=== PATIENT | male | born 1965 | race African-American/Black ===

== ENCOUNTER 2018-11-23 18:09 | Emergency (ER) | payer OTHER, SELFPAY ==
[2018-11-23 18:11] VITALS: BP 178/109; PULSE 93; RESP 14; TEMP 36.8; O2SAT 96; BMI 37.5
--- NOTE | 2018-11-23 19:13 | ED_ITS ---
HPI - Back Pain/Injury <GRISELDA Sandoval - Last Filed: 11/23/18 21:52> General Chief Complaint: Back Pain/Injury Stated Complaint: BOTH SIDE BACK PAIN TINGLING OF LEGS Time Seen by Provider: 11/23/18 18:20 Source: patient Mode of arrival: ambulatory Limitations: no limitations History of Present Illness HPI Narrative: 53-year-old male here for complaint to bilateral upper lumbar paraspinal discomfort earlier today. He states that as the day progressed his muscles got more sore and more tight. 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 He denies any trauma to the lower back area. He reports that his back got very tight this afternoon and painful were was difficult for him to take deep breaths. He denies any loss of bladder or bowel control. He is ambulatory in the emergency room today. He reports that the pain radiates down into his right thigh area. He was seen for similar symptoms over week ago and was diagnosed with abdominal wall strain and was prescribed a muscle relaxer. MD Complaint: back pain Related Data Previous Rx's Medication Instructions Recorded prednisone 40 mg PO DAILY #8 tab 11/23/18 Review of Systems <GRISELDA Sandoval - Last Filed: 11/23/18 21:52> Constitutional Denies chills, Denies fever(s), Denies lethargy and Denies weakness Eyes Denies change in vision, Denies eye discharge, Denies irritation and Denies loss of vision ENT Ears, Nose, Mouth, and Throat: Denies change in voice, Denies neck pain and Denies sore throat Cardiovascular Denies dyspnea and Denies dyspnea on exertion Respiratory Denies cough, Denies dyspnea, Denies dyspnea on exertion and Denies wheezing Gastrointestinal Gastrointestinal: Denies abdominal pain, Denies change in bowel habits, Denies diarrhea, Denies nausea and Denies vomiting Musculoskeletal Denies neck pain Comments: Back pain and muscle spasm radiating into right thigh Integumentary/Breasts Denies pruritus, Denies erythema, Denies rash and Denies wounds Neurologic Denies confusion, Denies loss of vision and Denies weakness Psychiatric Denies anxiety, Denies confusion, Denies depression, Denies homicidal ideation and Denies suicidal ideation Allergic/Immunologic Denies wheezing PFSH <GRISELDA Sandoval - Last Filed: 11/23/18 21:52> Social History Smoking Status: Unknown if ever smoked Social History Smoking Status: Unknown if ever smoked Exam <GRISELDA Sandoval - Last Filed: 11/23/18 21:52> Initial Vital Signs Initial Vital Signs: Vital Signs Temperature 98.3 F 11/23/18 18:11 Pulse Rate 93 H 11/23/18 18:11 Respiratory Rate 14 11/23/18 18:11 Blood Pressure 178/109 H 11/23/18 18:11 Pulse Oximetry 96 11/23/18 18:11 Const General: cooperative and well developed Nutritional Appearance: well nourished Orientation: alert, awake, oriented x3 and not confused HENMT Mouth: oral mucosae normal and moist mucous membranes Eyes General: appearance normal, both eyes and all related structures Conjunctivae: conjunctivae normal Sclera: sclerae normal Pupils: PERRL EOM: EOM intact bilaterally Resp Effort & Inspection: normal respiratory effort, able to speak in complete sentences, no respiratory distress and no use of accessory muscles Auscultation: clear to auscultation bilaterally, no rales, no rhonchi and no wheezes Cardio Rate: regular rate Rhythm: regular rhythm Heart Sounds: no click, no gallops, no murmurs and no rubs Pulses: normal peripheral pulses Back/Spine/Pelvis Other: Lumbar spine with no signs of trauma. No tenderness on palpation distal sensation is intact. Distal pulses are intact. Distal range of motion is intact. Skin General: no rashes or lesions noted, No jaundice and No petechiae Neuro General: alert, oriented x3, gait normal and no focal motor deficits Speech: speech normal <Sivakumar Aragon DO - Last Filed: 11/24/18 05:00> Initial Vital Signs Initial Vital Signs: Vital Signs Temperature 98.3 F 11/23/18 18:11 Pulse Rate 93 H 11/23/18 18:11 Respiratory Rate 14 11/23/18 18:11 Blood Pressure 178/109 H 11/23/18 18:11 Pulse Oximetry 96 11/23/18 18:11 Course <GRISELDA Sandoval - Last Filed: 11/23/18 21:52> Vital Signs - 8 hr 11/23/18 18:11 11/23/18 19:19 Temperature 98.3 F Pulse Rate 93 H 97 H Respiratory Rate 14 18 Blood Pressure 178/109 H Blood Pressure [Left Arm] 148/94 H Pulse Oximetry 96 95 <Sivakumar Aragon DO - Last Filed: 11/24/18 05:00> Vital Signs - 8 hr 11/23/18 18:11 11/23/18 19:19 Temperature 98.3 F Pulse Rate 93 H 97 H Respiratory Rate 14 18 Blood Pressure 178/109 H Blood Pressure [Left Arm] 148/94 H Pulse Oximetry 96 95 MDM - Back Pain/Injury <GRISELDA Sandoval - Last Filed: 11/23/18 21:52> MDM Narrative Medical decision making narrative: Symptoms resolved at time of exam with exception of some mild discomfort. Signs and symptoms of from a subjective history presents as a muscle spasm secondary to muscle strain to the lumbar region along with sciatica. Will have her continue using muscle relaxer as prescribed along with [id number] ibuprofen and short course of prednisone for anti-inflammatory effects. Work note is provided for either light duty or no work for the next couple days to rest the area. Gentle range of motion painful areas. For any worsening symptoms return to the emergency room. Discharge Plan Departure Patient Disposition: Home Clinical Impression: Strain of lumbar region Qualifiers: Encounter type: initial encounter Qualified Code(s): S39.012A - Strain of muscle, fascia and tendon of lower back, initial encounter Sciatica Qualifiers: Laterality: right Qualified Code(s): M54.31 - Sciatica, right side Discharge Date/Time: 11/23/18 19:28 Interventions: ED Discharge Assessment Last Done: 11/23/18 19:27 Instructions: DI for Back Pain With Sciatica Activity Restrictions/Additional Instructions: Signs and symptoms presents as lower back muscle strain with muscle spasm causing sciatica. Continue to use muscle relaxer as prescribed. Also use [id number] ibuprofen for discomfort. Small amount of prednisone and a steroid is prescribed use as directed. Rest area. Do gentle range of motion to painful areas help keep muscles loose. Follow up with her primary care provider. If continued lower back pain may need to have MRI. Return emergency room for any worsening symptoms. Prescriptions: New prednisone 20 mg tablet 40 mg PO DAILY Qty: 8 RF: 0 Referrals: Jan Ron MD [Primary Care Provider] - Stand Alone Forms: Work Release Note <Sivakumar Aragon DO - Last Filed: 11/24/18 05:00> Cosign ED Attending Cosignature Attestation: I was immediately available in the department for consultation. Documentation has been reviewed. I agree with assessment and plan.
[2018-11-23 19:19] VITALS: BP 148/94; PULSE 97; RESP 18; O2SAT 95
== END 2018-11-23 19:28 | disposition home or self-care (01) ==
PROVIDERS: Emergency Provider Nurse Practitioner Family; PCP Internal Medicine
DX: S39.012A Strain of muscle, fascia and tendon of lower back, initial encounter (principal); M54.31 Sciatica, right side
CPT/HCPCS: 99282

== ENCOUNTER 2019-10-17 09:09 | Emergency (ER) | payer OTHER, SELFPAY ==
[2019-10-17 09:10] VITALS: BP 167/92; PULSE 89; RESP 16; TEMP 36.7; O2SAT 100; BMI 36.5
--- NOTE | 2019-10-17 09:20 | ED.BACK ---
HPI - Back Pain/Injury General Chief Complaint: Back Pain/Injury Stated Complaint: tightness in back ab and down legs lifted a dress Time Seen by Provider: 10/17/19 09:19 Source: patient, family () and old records reviewed Mode of arrival: Ambulatory Limitations: no limitations History of Present Illness HPI Narrative: This is a 54-year-old male comes emergency department with complaint of green in back pain radiating down his left leg. On he was lifting heavy desk with another co-worker when he felt a pop and had pain in his groin bilaterally. Patient then states he also developed pain down the left leg almost immediately as well as tightness in his lower back the following day. Patient states he has continued to have tightness in his back he states it's not really painful. He does have discomfort in the groin. As well as tingling and discomfort on his left leg. Patient denies any weakness, he denies any numbness. Denies any symptoms in his right leg. He denies any loss of bowel or bladder control. He states that he has been having trouble getting to the bathroom in time but knows that he needs to urinate. He states this is been a longstanding problem but is worsened by the fact that he is moving much slower than normal. Denies any fecal incontinence. Patient has had similar back and lower extremity issues in the past but not to the groin pain. Lifting, movement and particularly walking make his symptoms worse. He has been taking ibuprofen. He takes lisinopril for hypertension, he has had elbow and knee surgery. No prior back or abdominal surgeries. Denies any allergies to medications. Related Data Previous Rx's Medication Instructions Recorded cyclobenzaprine 10 mg PO TID PRN #14 tab 10/17/19 lidocaine 1 patch TOP DAILY #15 each 10/17/19 meloxicam 7.5 mg PO BID #10 tab 10/17/19 Allergies Allergy/AdvReac Type Severity Reaction Status Date / Time No Known Drug Allergies Allergy Verified 10/17/19 09:37 Review of Systems Review of Systems ROS Unobtainable: All systems reviewed & are unremarkable except as noted in HPI and below Constitutional Constitutional: Denies chills and Denies fever(s) Gastrointestinal Gastrointestinal: Denies abdominal pain, Denies change in bowel habits, Denies fecal incontinence, Denies diarrhea, Denies nausea and Denies vomiting Genitourinary Genitourinary: Denies hematuria, Denies genital pain, Denies dysuria, Denies flank pain, Denies testicular pain, Denies urinary frequency, Denies urinary hesitancy, Denies urinary incontinence and Reports urinary urgency Musculoskeletal Musculoskeletal: Reports as per HPI, Reports back pain (spasm), Reports limited range of motion, Denies muscle weakness, Denies numbness, Reports radiating pain into limb (left leg), Reports stiffness and Reports tingling Integumentary/Breasts Skin/Breast: Denies rash Neurologic Neurologic: Denies numbness and Reports tingling Patient History Medical History (Updated 10/17/19 @ 10:36 by Jackelin Lawson DO) Hypertension (Acute) Social History Smoking Status: Unknown if ever smoked Smoking Status: Unknown if ever smoked alcohol intake frequency: holidays/special occasions only Substance Use Type: does not use Exam Narrative Exam Narrative: GENERAL: Alert and oriented x three, obese, well-appearing male in mild distress. HEENT: Head normocephalic, atraumatic, EOMI, pupils reactive, face symmetric, moist mucous membranes NECK: Supple, full range of motion CARDIOVASCULAR: Regular rate and rhythm without murmurs, rubs or gallops. RESPIRATORY: Breath sounds equal bilaterally, no wheezes rales or rhonchi. ABDOMEN: Soft, nontender. Normoactive bowel sounds all 4 quadrants. No guarding or rebound, rigidity, no mass. No hernia noted, no inguinal tenderness, defect or lumps noted. : No CVA tenderness BACK: No cervical, thoracic or lumbar vertebral point tenderness. Patient has decreased range of motion. Patient has spasm and mild discomfort in the left lower back/quadratus lumborum area. Patient's gait is normal. Muscle strength is 5/5 in lower extremities, DTRs are 2/4 and lower extremities. Dorsalis pedis and tibialis pulses are 2+ and lower extremities. Sensation is intact in the lower extremities. EXTREMITIES: Normal range of motion, no clubbing or edema. Neurovascularly intact. NEUROLOGICAL: Cranial nerves II through XII grossly intact. Moving all extremities SKIN: Warm, dry, no petechiae, no rashes or lesions. Initial Vital Signs Initial Vital Signs: Vital Signs Temperature 98.0 F 10/17/19 09:10 Pulse Rate 89 10/17/19 09:10 Respiratory Rate 16 10/17/19 09:10 Blood Pressure 167/92 H 10/17/19 09:10 Pulse Oximetry 100 10/17/19 09:10 Course Orders Ordered: ED Orders 10/17/19 09:35 XR lumbar spine 2-3V Stat Discontinued Medications Cyclobenzaprine HCl (Flexeril) 10 mg PO NOW ONE Stop: 10/17/19 09:36 Last Admin: 10/17/19 09:50 Dose: 10 mg Documented by: CITLALI Ketorolac Tromethamine (Toradol) 30 mg IM NOW ONE Stop: 10/17/19 09:36 Last Admin: 10/17/19 09:50 Dose: 30 mg Documented by: CITLALI Vital Signs Vital signs: Vital Signs - 8 hr 10/17/19 09:10 10/17/19 11:00 Temperature 98.0 F Pulse Rate 89 74 Respiratory Rate 16 12 Blood Pressure 167/92 H Blood Pressure [Left Arm] 134/74 Pulse Oximetry 100 100 MDM - Back Pain/Injury Imaging Data Lumbar spine xray: Attestation: I personally reviewed and interpreted this imaging study as follows: My Impression: nap, patient has prior arthritic and chronic changes. No new changes noted. Radiologist's Impression: [place] [address] XRay Report Signed Patient: Martinez London DMR#: [id number] : 1965Acct:[id number] Age/Sex: 54 / MDate of Service: 10/17/19 Loc: ED Accession Number: [id number] Procedure: XR lumbar spine 2-3V Ordering Provider: Jackelin Lawson D.O. PROCEDURE: XR LUMBAR SPINE 2-3V INDICATIONS: low back spasm, groin pain, left leg pain TECHNIQUE: 3 views of the lumbar spine were acquired. COMPARISON: [facility], , XR LUMBAR SPINE W OBL MIN 4VW, 11/14/2015, 8:02. FINDINGS: Bones: No fracture or focal osseous destruction. Minimal anterior wedging of the T12 and L1 vertebral bodies. This appears unchanged. Multilevel degenerative endplate sclerosis and spurring. Diffuse facet arthropathy. Mild narrowing of the L4-L5 and L5-S1 disc spaces which appears unchanged. Grade 1 retrolisthesis of L1 on L2, L2 on L3 and L3 on L4, unchanged. Soft tissues: Overlying bowel gas pattern is normal. No suspicious soft tissue calcifications. IMPRESSION: Unchanged lower lumbar facet arthropathy and mild disc degeneration. Dictated by: Jonh Mcdermott M.D. on 10/17/2019 at 11:08 Approved by: Jonh Mcdermott M.D. on 10/17/2019 at 11:11 [facility] Narrative Medical decision making narrative: Discussed findings with patient, on recheck he is feeling much better. Discussed red flag symptoms, strict return precautions. 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 No flexeril while working. Also precautions to protect his back. Patient and express understanding. L&I paperwork was filled out. Discharge Plan Departure Patient Disposition: Home Clinical Impression: Strain of lumbar region Qualifiers: Encounter type: initial encounter Qualified Code(s): S39.012A - Strain of muscle, fascia and tendon of lower back, initial encounter Groin strain Qualifiers: Encounter type: initial encounter Laterality: unspecified laterality Qualified Code(s): S76.219A - Strain of adductor muscle, fascia and tendon of unspecified thigh, initial encounter Discharge Date/Time: 10/17/19 11:08 Instructions: DI for Back Pain With Sciatica Activity Restrictions/Additional Instructions: Follow up with L&I provider in the next 7-10 days if symptoms are not improving. Take medications as prescribed. Do not take ibuprofen or NSAIDs with meloxicam, you may take twice daily. You may take tylenol up to 1000mg every 8 hours as needed with this medication. Use lidocaine patch to affected area, replace every 24 hours. You may take muscle relaxant every 8 hours as needed, this medication can make you sleepy do not drive, perform hazardous activities or make any major decisions while taking. Return to the ER for fevers greater than 100.4F, rapidly worsening pain in her back, groin or lower extremity, new weakness, numbness or loss of sensation, inability to lift your foot or leg, loss of bowel or bladder control or if you do not realize you are urinating or having bowel movements, or other new or concerning symptoms. Prescriptions: New lidocaine 5 % adhesive patch,medicated 1 patch TOP DAILY Qty: 15 RF: 0 meloxicam 7.5 mg tablet 7.5 mg PO BID Qty: 10 RF: 0 cyclobenzaprine 10 mg tablet 10 mg PO TID PRN (Reason: muscle spasm) Qty: 14 RF: 0 Referrals: Jan Ron MD [Primary Care Provider] - Stand Alone Forms: Work Release Note
--- NOTE | 2019-10-17 09:35 | DI.RAD.S_ITS ---
PROCEDURE: XR LUMBAR SPINE 2-3V INDICATIONS: low back spasm, groin pain, left leg pain TECHNIQUE: 3 views of the lumbar spine were acquired. COMPARISON: [facility], [facility], XR LUMBAR SPINE W OBL MIN 4VW, 11/14/2015, 8:02. FINDINGS: Bones: No fracture or focal osseous destruction. Minimal anterior wedging of the T12 and L1 vertebral bodies. This appears unchanged. Multilevel degenerative endplate sclerosis and spurring. Diffuse facet arthropathy. Mild narrowing of the L4-L5 and L5-S1 disc spaces which appears unchanged. Grade 1 retrolisthesis of L1 on L2, L2 on L3 and L3 on L4, unchanged. Soft tissues: Overlying bowel gas pattern is normal. No suspicious soft tissue calcifications. IMPRESSION: Unchanged lower lumbar facet arthropathy and mild disc degeneration. Dictated by: Jonh Mcdermott M.D. on 10/17/2019 at 11:08 Approved by: Jonh Mcdermott M.D. on 10/17/2019 at 11:11
--- NOTE | 2019-10-17 09:38 | PC.NURSE ---
CSM fully within normal limits. No focal weakness. Ambulatory w/o difficulty.
[2019-10-17] MEDS: CYCLOBENZAPRINE 10 MG TABLET PO (09:50)
[2019-10-17] MEDS: KETOROLAC 60 MG/2 ML VIAL 30 MG IM (09:50)
[2019-10-17 11:00] VITALS: BP 134/74; PULSE 74; RESP 12; O2SAT 100
== END 2019-10-17 11:08 | disposition home or self-care (01) ==
PROVIDERS: Emergency Provider Emergency Medicine; PCP Internal Medicine
DX: S39.012A Strain of muscle, fascia and tendon of lower back, initial encounter (principal); S76.219A Strain of adductor muscle, fascia and tendon of unspecified thigh, initial encounter; X50.0XXA Overexertion from strenuous movement or load, initial encounter; Y99.0 Civilian activity done for income or pay
CPT/HCPCS: 72100; 96372; 99283; J1885

== ENCOUNTER 2019-11-17 18:45 | Emergency (ER) | payer OTHER, SELFPAY ==
[2019-11-17 19:56] VITALS: BP 161/104; PULSE 96; TEMP 37.1; O2SAT 97
--- NOTE | 2019-11-17 20:20 | ED_ITS ---
HPI - Back Pain/Injury General Chief Complaint: Back Pain/Injury Stated Complaint: back pain radiating down his left leg Time Seen by Provider: 11/17/19 19:52 Source: patient Mode of arrival: Ambulatory Limitations: no limitations History of Present Illness HPI Narrative: Patient is a 54-year-old male here for evaluation of left lower extremity pain to include left knee pain. Patient has been seen in the past for this. He was initially seen last month. This is an L and I claim. He states he has not followed up with his primary doctor since that time. He has been doing Mobic. No physical therapy. No further radiologic studies. They state that they are having problems finding a provider that will take this L&I claim in order to get referrals to see physical therapy or any MRIs. He came in today because he is not having left knee pain and that is also occasionally radiating down to his left foot. No fevers. No loss of bowel or bladder. Related Data Previous Rx's Medication Instructions Recorded cyclobenzaprine 10 mg PO TID PRN #14 tab 10/17/19 lidocaine 1 patch TOP DAILY #15 each 10/17/19 meloxicam 7.5 mg PO BID #10 tab 10/17/19 prednisone 40 mg PO DAILY 7 Days #14 tab 11/17/19 Allergies Allergy/AdvReac Type Severity Reaction Status Date / Time No Known Drug Allergies Allergy Verified 11/17/19 18:53 Review of Systems Constitutional Constitutional: Denies fever(s) Cardiovascular Cardiovascular: Denies chest pain and Denies dyspnea Respiratory Respiratory: Denies dyspnea Gastrointestinal Gastrointestinal: Denies abdominal pain, Denies nausea and Denies vomiting Genitourinary Genitourinary: Denies dysuria and Denies urinary hesitancy Musculoskeletal Musculoskeletal: Reports radiating pain into limb (Left) Comments: Left knee pain Integumentary/Breasts Skin/Breast: Denies lesions and Denies rash Neurologic Neurologic: Denies behavioral changes Psychiatric Psychiatric: Denies behavioral changes Hematologic/Lymphatic Hematologic/Lymphatic: Denies easy bleeding and Denies easy bruising Patient History Medical History Hypertension (Acute) Social History Smoking Status: Unknown if ever smoked Smoking Status: Unknown if ever smoked tobacco type: cigars alcohol intake frequency: holidays/special occasions only Substance Use Type: does not use Exam Initial Vital Signs Initial Vital Signs: Vital Signs Temperature 98.7 F 11/17/19 19:56 Pulse Rate 96 H 11/17/19 19:56 Blood Pressure 161/104 H 11/17/19 19:56 Pulse Oximetry 97 11/17/19 19:56 Const General: cooperative and comfortable Limitations: mental status not altered HENMT Head: normal to inspection and normocephalic Resp Effort & Inspection: normal respiratory effort Cardio Rate: regular rate Skin Lesions: no lesions Rashes: no rashes Neuro General: alert, awake and oriented x3 Gait: normal gait Extrem General: capillary refill normal and No edema Other: No tenderness to palpation left knee. Is able to ambulate. Course Vital Signs Vital signs: Vital Signs - 8 hr 11/17/19 19:56 Temperature 98.7 F Pulse Rate 96 H Blood Pressure [Left Arm] 161/104 H Pulse Oximetry 97 MDM - Back Pain/Injury MDM Narrative Medical decision making narrative: Inform the patient that unfortunately I cannot provide any further assistance with regard to his L and I claim. I did provide them with the phone number for a financial department here at the [facility] to see if they would be able to help the patient. I did tell him that it would not be unreasonable for him to get in to see physical therapy and potentially have an MRI however this would need to be done by either his primary provider or the L and I provider. He is on Mobic at home. We will put him on a couple days of steroids and then he will restart his Mobic at the conclusion of that. Also sent home with a very short course of some pain medication. I do not feel that this is cauda equina. I feel we can hold on any radiologic studies for now. Patient expressed understanding and agreement with plan. Discharge Plan Departure Patient Disposition: Home Clinical Impression: Sciatica Qualifiers: Laterality: left Qualified Code(s): M54.32 - Sciatica, left side Discharge Date/Time: 11/17/19 20:43 Instructions: DI for Back Pain With Sciatica Activity Restrictions/Additional Instructions: Recommend that you take the prednisone as directed after that start taking the meloxicam again as directed. Also recommend you contact the billing office at [facility] at [phone]. They may be able to help you with further questions with your L&I. Prescriptions: New prednisone 20 mg tablet 40 mg PO DAILY 7 Days Qty: 14 RF: 0 No Action lidocaine 5 % adhesive patch,medicated 1 patch TOP DAILY Qty: 15 RF: 0 meloxicam 7.5 mg tablet 7.5 mg PO BID Qty: 10 RF: 0 cyclobenzaprine 10 mg tablet 10 mg PO TID PRN (Reason: muscle spasm) Qty: 14 RF: 0 Referrals: Jan Ron MD [Primary Care Provider] -
== END 2019-11-17 20:43 | disposition home or self-care (01) ==
PROVIDERS: Emergency Provider Emergency Medicine; PCP Internal Medicine
DX: M54.32 Sciatica, left side (principal); Y99.0 Civilian activity done for income or pay
CPT/HCPCS: 99281; 99283

== ENCOUNTER → 2020-03-24 09:46 | Outpatient (CLI) | payer OTHER, SELFPAY ==
[2020-03-24 15:32] LABS: Influenza A - CEPHEID Flu A NEGATIVE (NEGATIVE); Influenza B - CEPHEID Flu B NEGATIVE (NEGATIVE)
[2020-03-25 10:31] LABS: COVID19 Sendout Not Detected (Not Detect)
== END ==
PROVIDERS: PCP Internal Medicine; Visit Provider Physician Assistant
DX: R06.02 Shortness of breath (principal); R50.9 Fever, unspecified
CPT/HCPCS: 87502; 87635

== ENCOUNTER → 2020-03-24 09:59 | Outpatient (CLI) | payer OTHER, SELFPAY ==
--- NOTE | 2020-03-24 10:02 | DI.RAD.S_ITS ---
PROCEDURE: XR CHEST 2V INDICATIONS: wheezing TECHNIQUE: 2 views of the chest were acquired. COMPARISON: None. FINDINGS: Surgical changes and devices: None. Lungs and pleura: Mild perihilar interstitial infiltrates bilaterally. No pleural effusions or pneumothorax. Mediastinum: Mediastinal contours are normal. Heart size is normal. Bones and chest wall: No suspicious bony abnormalities. Soft tissues appear unremarkable. IMPRESSION: Mild bilateral perihilar interstitial infiltrates. Differential diagnosis includes reactive airway disease versus viral pneumonitis. Dictated by: Salvador Roy M.D. on 03/24/2020 at 10:08 Approved by: Salvador Roy M.D. on 03/24/2020 at 10:09
== END ==
PROVIDERS: PCP Internal Medicine; Referring Provider Physician Assistant; Visit Provider Physician Assistant
DX: R50.9 Fever, unspecified (principal); R06.2 Wheezing; R06.02 Shortness of breath
CPT/HCPCS: 71046; 87502; 87635

== ENCOUNTER 2020-07-05 10:40 | Emergency (ER) | payer OTHER, SELFPAY ==
[2020-07-05 10:41] VITALS: BP 145/81; PULSE 79; RESP 15; TEMP 36.9; O2SAT 99; BMI 37.5
--- NOTE | 2020-07-05 11:24 | ED.LOWEXIN ---
HPI - Extremity Injury (Lower) General Chief Complaint: Extremity Injury, Lower Stated Complaint: sore knee/leg/back left side,stiffness in chest Time Seen by Provider: 07/05/20 11:02 Source: patient Mode of arrival: Ambulatory Limitations: no limitations History of Present Illness HPI Narrative: 55-year-old male who in September sustained a injury to his left knee while at work. Initially had an L&I claim. Was going to physical therapy. He states that secondary to the COVID-19 crisis he had stopped going to physical therapy. He states that his L and I claim was then closed in he returned to full duty at work. He states that his left knee/leg/back issues have never improved and actually have been worsening over the past couple days. He states he cannot go to his primary doctor because they do not deal with L and I claims. He attempted to go to walk-in clinic at [facility] and was told to come to the emergency department because they do not ?reopen ?L and I claims. He describes pain in his left knee. Especially with bending and also with movement from side to side. He has no hip pain. He states the pain in his knee is radiating up his leg into his lower back and also down. Is taking ibuprofen and also wearing a knee brace. Related Data Previous Rx's Medication Instructions Recorded cyclobenzaprine 10 mg PO TID PRN #14 tab 10/17/19 lidocaine 1 patch TOP DAILY #15 each 10/17/19 meloxicam 7.5 mg PO BID #10 tab 10/17/19 albuterol sulfate 90 mcg/actuation 1 inh INHALATION Q4-6H PRN #18 gram 03/25/20 aerosol inhaler cyclobenzaprine 10 mg PO BEDTIME PRN #10 tab 07/05/20 tramadol [Ultram] 50 mg PO Q8H PRN #10 tab 07/05/20 Allergies Allergy/AdvReac Type Severity Reaction Status Date / Time No Known Drug Allergies Allergy Verified 07/05/20 10:51 Review of Systems Constitutional Constitutional: Denies fever(s) and Denies headache(s) ENT Ears, Nose, Mouth, and Throat: Denies headache(s) Cardiovascular Cardiovascular: Denies chest pain and Denies dyspnea Respiratory Respiratory: Denies dyspnea Gastrointestinal Gastrointestinal: Denies abdominal pain Musculoskeletal Musculoskeletal: Denies numbness and Denies tingling Comments: Left knee pain/leg pain Integumentary/Breasts Skin/Breast: Denies lesions and Denies rash Neurologic Neurologic: Denies headache(s), Denies numbness and Denies tingling Psychiatric Psychiatric: Denies anxiety Hematologic/Lymphatic Hematologic/Lymphatic: Denies easy bleeding and Denies easy bruising Allergic/Immunologic Allergic/Immunologic: Denies urticaria Patient History Medical History Hypertension (Acute) Social History Smoking Status: Current some day smoker Smoking Status: Current some day smoker tobacco type: cigars alcohol intake frequency: holidays/special occasions only Substance Use Type: does not use Exam Initial Vital Signs Initial Vital Signs: Vital Signs Temperature 98.5 F 07/05/20 10:41 Pulse Rate 79 07/05/20 10:41 Respiratory Rate 15 07/05/20 10:41 Blood Pressure 145/81 H 07/05/20 10:41 Pulse Oximetry 99 07/05/20 10:41 Const General: cooperative and comfortable Limitations: mental status not altered HENMA Head: normal to inspection and normocephalic Resp Effort & Inspection: normal respiratory effort Cardio Rate: regular rate Skin Lesions: no lesions Rashes: no rashes Extrem Other: Left hip unremarkable, left ankle unremarkable, patient able to do a straight leg raise the left side. Not tender over the patella/quadriceps tendon. Did have some tenderness on the lateral aspect/posterior aspect of his left knee with flexion. His ACL MCL PCL and LCL all intact functional testing however he did have reproduction of pain with stressing of the LCL. Does report some tenderness along the ITB. Also has tenderness along the lateral hamstring. Also has tenderness along the lateral joint line. All the left leg. Course Vital Signs Vital signs: Vital Signs - 8 hr 07/05/20 10:41 Temperature 98.5 F Pulse Rate 79 Respiratory Rate 15 Blood Pressure 145/81 H Pulse Oximetry 99 MDM - Extremity Injury (Lower) MDM Narrative Medical decision making narrative: Patient has had symptoms for 9-10 months now. I do not feel that repeat x-rays are going to be beneficial. He is neurovascularly intact. I do feel that he has injured either his LCL lateral meniscus given his exam. He could also potentially have a ITB issue. Unfortunately who be unable to obtain an MRI into the emergency department. I do feel that patient needs an MRI to provided definitive diagnosis. Also feel that he has follow-up with Orthopedics and continued follow-up with physical therapy. Will send home with prescriptions for symptom treatment. He is given return precautions. He expressed understanding and agreement. Discharge Plan Departure Patient Disposition: Home Clinical Impression: Knee pain, left Qualifiers: Chronicity: chronic Qualified Code(s): M25.562 - Pain in left knee Instructions: How To Perform RICE (Rest, Ice, Compress, Elevate) Activity Restrictions/Additional Instructions: I do feel that an MRI would be beneficial to provide a definitive diagnosis of your left knee pain. Until then you can continue to wear the knee brace. Also recommend you continue with the anti-inflammatories. Also recommend physical therapy. All of this will have to be ordered by the your primary doctor or your L and I provider. A prescription for other medications for your symptoms was sent to [facility]. Prescriptions: New cyclobenzaprine 10 mg tablet 10 mg PO BEDTIME PRN (Reason: muscle spasm) Qty: 10 RF: 0 tramadol [Ultram] 50 mg tablet 50 mg PO Q8H PRN (Reason: pain) Qty: 10 RF: 0 No Action albuterol sulfate 90 mcg/actuation HFA aerosol inhaler 1 inh INHALATION Q4-6H PRN (Reason: shortness of breath) Qty: 18 RF: 0 lidocaine 5 % adhesive patch,medicated 1 patch TOP DAILY Qty: 15 RF: 0 meloxicam 7.5 mg tablet 7.5 mg PO BID Qty: 10 RF: 0 cyclobenzaprine 10 mg tablet 10 mg PO TID PRN (Reason: muscle spasm) Qty: 14 RF: 0 Referrals: Jan Ron MD [Primary Care Provider] -
--- NOTE | 2020-07-05 11:34 | PC.NURSE ---
patient states that he injured his leg at work. 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 He heard a pop. Since then he has been experiencing some instability of that leg and has re-injured it since then. He has a decreased range of motion and states the he cannot twist and turn his body because his knee is causing him pain.
[2020-07-05 11:50] VITALS: BP 147/76; PULSE 71; RESP 12; O2SAT 100
== END 2020-07-05 11:51 | disposition home or self-care (01) ==
LOC: ED 11:38
PROVIDERS: Emergency Provider Emergency Medicine; PCP Internal Medicine
DX: M25.562 Pain in left knee (principal); Y99.0 Civilian activity done for income or pay
CPT/HCPCS: 99281

== ENCOUNTER → 2020-11-14 11:11 | Outpatient (CLI) | payer OTHER, SELFPAY ==
[2020-11-14 13:27] LABS: COVID19 -Nasal RAPID Negative (Negative)
== END ==
PROVIDERS: PCP Internal Medicine; Referring Provider Physician Assistant; Visit Provider Physician Assistant
DX: Z20.822 Contact with and (suspected) exposure to COVID-19 (principal)
CPT/HCPCS: 87635

== ENCOUNTER → 2020-11-16 15:14 | Outpatient (CLI) | payer OTHER, SELFPAY ==
--- NOTE | 2020-11-16 17:08 | DI.NM.S_ITS ---
DATE OF SERVICE: 11/16/2020 PROCEDURE PERFORMED: Standard exercise treadmill study without imaging. ORDERING PROVIDER: Mery Goss PA-C. INDICATIONS: The patient is a 55-year-old male with diabetes, epigastric discomfort, and lightheadedness. FINDINGS: 1. The patient was able to exercise for 6 minutes and 19 seconds on a standard Tra protocol suggesting moderate-severely reduced exercise capacity with an ANGI of +33%, achieving 7.0 METS. 2. He demonstrated a normal heart rate and blood pressure response to exercise, achieving a maximum heart rate of 175 BPM (105% of his predicted maximum). 3. He had no chest discomfort or other anginal symptoms and stopped because of generalized fatigue. 4. The resting ECG shows sinus rhythm with left axis deviation, but normal ST segments. With exercise, there were no significant ST-segment shifts or arrhythmias. IMPRESSION: 1. Normal exercise treadmill study with no ECG evidence for ischemia. 2. Moderate-severely reduced exercise capacity with fatigue but no anginal symptoms or arrhythmias. Martinez [place] - NORY/sydni/sb doc#: [id number]/job#: [id number] dd: 11/16/2020 16:40:00 dt: 11/16/2020 17:01:00 DICTATING MD/COPIES TO: Farooq Martinez MD COPIES MNE: ROSENDA;
== END ==
PROVIDERS: PCP Internal Medicine; Referring Provider Physician Assistant; Visit Provider Physician Assistant
DX: R07.9 Chest pain, unspecified (principal); R06.00 Dyspnea, unspecified; R10.13 Epigastric pain; R42 Dizziness and giddiness; E11.9 Type 2 diabetes mellitus without complications; R11.0 Nausea
CPT/HCPCS: 93017

== ENCOUNTER 2023-11-24 12:08 | Emergency (ER) | payer OTHER, SELFPAY ==
[2023-11-24] VITALS (24 sets, daily range): BP systolic 137–186; BP diastolic 79–103; PULSE 77–100; RESP 11–19; TEMP 36.5–37.1; O2SAT 93–99; BMI 35.0
--- NOTE | 2023-11-24 12:19 | DI.RAD.S_ITS ---
PROCEDURE: XR CHEST 1V INDICATIONS: chest pain TECHNIQUE: One view of the chest was acquired. COMPARISON: [facility], CR, XR CHEST 2V, 03/24/2020, 10:23. FINDINGS: Surgical changes and devices: None. Lungs and pleura: Lungs are clear. No pleural effusions or pneumothorax. Mediastinum: Mediastinal contours appear normal. Heart size is normal. Bones and chest wall: No suspicious bony lesions. Overlying soft tissues appear unremarkable. IMPRESSION: No acute cardiopulmonary abnormality is seen. Dictated by: Lamonte Hinton M.D. on 11/24/2023 at 13:47 Approved by: Lamonte Hinton M.D. on 11/24/2023 at 13:48
[2023-11-24 13:29] LABS: Add Manual Diff / Slide Review NO; Basophils Absolute Auto 100 /uL (0-100); Basophils Percent Auto 1.7 % (0-2); Eosinophils Absolute Auto 0 /uL (0-450); Eosinophils Percent Auto 0.8 % (2-4); Hematocrit 49.9 % (41-53); Lymphocytes Absolute Auto 900 /uL (1100-4500); Mean Corpuscular Hemoglobin 30.3 PG (26-34); Mean Corpuscular Volume 89.1 fL (80-100); Monocytes Absolute Auto 400 /uL (0-900); Monocytes Percent Auto 9.5 % (3-14); Neutrophils Absolute Auto 2900 /uL (1500-7000); Platelet Count 202 X10^3/uL (150-400); Red Cell Distribution Width 13.3 % (11.6-14.8); White Blood Cell Count 4.4 X10^3/uL (4.5-11.0)
[2023-11-24 13:35] LABS: INR 1.1 (0.9-1.3); Prothrombin Time 12.4 SECONDS (9.4-12.5)
[2023-11-24 13:38] LABS: PTT Partial Thromboplastin Tim 33 SECONDS (25.1-36.5)
[2023-11-24 13:43] LABS: Alanine Aminotransferase 41 IU/L (<50); Albumin 4.3 g/dL (3.5-5.0); Albumin Globulin Ratio 1.2 (1.0-2.8); Alkaline Phosphatase 77 U/L (38-126); Aspartate Aminotransferase 51 IU/L (17-59); BUN Creatinine Ratio 16.8 (6-22); Bilirubin Total 0.8 mg/dL (0.2-1.3); Blood Urea Nitrogen 19 mg/dL (9-20); Calcium 9.4 mg/dL (8.4-10.2); Carbon Dioxide 28 mmol/L (22-32); Chloride 104 mmol/L (98-107); Creatine Kinase 944 U/L (55-170); Estimated Glomerular Filt Rate > 60 mL/min (>60); Globulin 3.6 g/dL (1.7-4.1); Glucose 87 mg/dL (70-100); HEMOLYSIS < 15 (0-50); Lipase 165 U/L (23-300); Magnesium 1.7 mg/dL (1.6-2.3); Potassium 3.9 mmol/L (3.4-5.1); Sodium 139 mmol/L (137-145); Total Protein 7.9 g/dL (6.3-8.2)
[2023-11-24 13:53] LABS: Troponin I < 0.012 ng/mL (0.01-0.034)
--- NOTE | 2023-11-24 14:06 | DI.CT.S_ITS ---
PROCEDURE: CT HEAD/BRAIN WO CON INDICATIONS: slurred speech this am, resolved symptoms. TECHNIQUE: Noncontrast 4.5 mm thick angled axial sections acquired from the foramen magnum to the vertex, with coronal and sagittal reformats. For radiation dose reduction, the following was used: automated exposure control, adjustment of mA and/or kV according to patient size. COMPARISON: None. FINDINGS: Image quality: Diagnostic. CSF spaces: Basal cisterns are patent. No extra-axial fluid collections. Ventricles are normal in size and shape. Brain: No midline shift. No intracranial masses or hemorrhage. Burris-white matter interface is normal. Skull and face: Calvarium and visualized facial bones are intact, without suspicious lesions. Sinuses: Visualized sinuses and mastoids are clear. IMPRESSION: No acute intracranial pathology. Dictated by: Salvador Roy M.D. on 11/24/2023 at 14:31 Approved by: Salvador Roy M.D. on 11/24/2023 at 14:35
--- NOTE | 2023-11-24 14:14 | DI.CT.S_ITS ---
PROCEDURE: CT ANGIO HEAD AND NECK INDICATIONS: speech difficulty, now resolved. TECHNIQUE: After the administration of intravenous contrast, 1 mm thick sections acquired from the aortic arch through the [place] of [place]. 3-dimensional [id number] (MIP) and/or volume rendering reformats were acquired of the central intracranial vasculature and neck separately. For radiation dose reduction, the following was used: automated exposure control, adjustment of mA and/or kV according to patient size. COMPARISON: [facility], CT, CT HEAD/BRAIN WO [facility], 11/24/2023, 14:20. FINDINGS: Image quality: There is artifact associated with the metallic hardware. Artifact from the metallic hardware is reduced by metal reconstruction algorithm. BRAIN: CSF spaces: Ventricles are normal in size and shape. Basal cisterns are patent. No extra-axial fluid collections. Brain: No significant abnormality of the brain can be seen. Skull and face: Calvarium and facial bones appear intact, without suspicious lesions. Orbits appear normal. Sinuses: Sinuses and mastoids are clear. HEAD CT ANGIOGRAPHY: Anterior circulation: Intracranial internal carotid arteries are normal in size and flow. The flow within the paired anterior cerebral arteries is normal and symmetric. The flow within the middle cerebral arteries is normal and symmetric. The anterior communicating artery is seen. No aneurysms are seen. Posterior circulation: Visualized portions of the vertebral arteries demonstrate normal caliber, and join to form a normal appearing basilar artery. Flow within the posterior cerebral arteries is normal and symmetric. No aneurysms are seen. NECK CT ANGIOGRAPHY: Carotid system: Incidental note is made of a common origin of the right brachiocephalic artery and the left common carotid artery (bovine type arch). This is considered to be a developmental variant of no clinical consequence. The origins of the common carotid arteries appear patent. The common carotid arteries demonstrate normal caliber and courses. The bifurcation regions are both widely patent. The internal carotid arteries demonstrate normal calibers and courses. Posterior circulation: The origins of the vertebral arteries both appear widely patent. The more superior extracranial portions of both vertebral arteries also demonstrate normal courses and calibers. They join to form a normal appearing basilar artery. Soft tissues: Visualized neck soft tissues demonstrate no suspicious abnormalities. The thyroid is prominent in size. Bones: No suspicious bony lesions. Visualized cervical spine appears normally aligned. [id number] cervical spine degenerative changes are seen. IMPRESSION: No significant intracranial arterial abnormality is seen. No significant abnormality is seen within the arteries of the neck. If there is strong clinical suspicion for an acute stroke, please consider a brain MRI for further evaluation, as it is more sensitive (assuming that there is no contraindication to MRI). Additional findings: [id number] cervical spine degenerative change Enlarged thyroid Bovine type aortic branching pattern. Any quantitative measurements of stenosis were performed using NASCET criteria. Dictated by: Supa Camp M.D. on 11/24/2023 at 13:48 Approved by: Supa Camp M.D. on 11/24/2023 at 13:51
--- NOTE | 2023-11-24 14:50 | PC.NURSE ---
Patient c/o head pressure, dizziness, and leg weakness. Patient states hx of intermittent episodes of dizziness x4 years and states this episode was different due to the associated symptoms. Patient states feeling weakness to his legs, steady gait and moving all extremities appropriately. Patient states head pressure and states pain is around the top of his head to his face. No facial asymmetry noted.
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
--- NOTE | 2023-11-24 18:38 | ED.GENADULT ---
HPI - General Adult General Chief complaint: Dizziness Stated complaint: DIZZINESS, PRESSURE HEAD AND NECK AND SHOULDERS Time Seen by Provider: 11/24/23 18:01 Source: patient and family Mode of arrival: Ambulatory History of Present Illness HPI narrative: Patient is a 58-year-old male. Does have a history of high blood pressure. For quite a long time (months/years) he has been dealing with issues of pressure in his head in his neck and shoulders. He has had a fairly extensive workup to include CT scans and MRI. He was waiting for an appointment with Neurology coming up within the next several weeks. He was here for evaluation of discomfort that started last evening. He states it is fullness in the left side of his head. Neck discomfort. No fevers. No chest pain. No shortness of breath. No palpitations. No vision changes. This is somewhat worse than his baseline. Sometimes he takes aspirin for the symptoms which seems to help. He did take an aspirin prior to arrival in the ER today. Related Data Previous Rx's Medication Instructions Recorded cyclobenzaprine 10 mg tablet 10 mg PO TID PRN muscle spasm #14 10/17/19 tabs lidocaine 5 % topical patch 1 patch topical DAILY #15 ea 10/17/19 meloxicam 7.5 mg tablet 7.5 mg PO BID pain #10 tabs 10/17/19 albuterol sulfate 90 mcg/actuation 1 inh inhalation Q4-6H PRN 03/25/20 aerosol inhaler shortness of breath #18 grams cyclobenzaprine 10 mg tablet 10 mg PO BEDTIME PRN muscle spasm 07/05/20 #10 tabs tramadol 50 mg tablet (Ultram) 50 mg PO Q8H PRN pain #10 tabs 07/05/20 cyclobenzaprine 5 mg tablet 5 mg PO TID PRN muscle spasm #20 01/25/23 tabs Allergies Allergy/AdvReac Type Severity Reaction Status Date / Time No Known Drug Allergies Allergy Verified 11/24/23 12:13 Review of Systems Review of Systems ROS Unobtainable: All systems reviewed & are unremarkable except as noted in HPI and below Patient History Medical History Hypertension Social History Smoking Status: Current some day smoker Smoking Status: Current some day smoker tobacco type: cigars alcohol intake frequency: holidays/special occasions only Substance Use Type: does not use Exam Initial Vital Signs Initial Vital Signs: Vital Signs Temperature 97.7 F 11/24/23 12:13 Pulse Rate 95 H 11/24/23 12:13 Respiratory Rate 18 11/24/23 12:13 Blood Pressure 186/103 H 11/24/23 12:13 Pulse Oximetry 97 11/24/23 12:13 Oxygen Delivery Method Room Air 11/24/23 12:13 Const General: cooperative, comfortable and No ill appearing HENWV Head: normal to inspection and normocephalic Resp Effort & Inspection: normal respiratory effort Cardio Rate: regular rate Skin General: no rashes or lesions noted Neuro General: patient alert, patient awake, patient oriented x3 and moves all extremities Cognition: normal cognition Speech: speech normal Sensory Exam: no sensory deficits noted Extrem General: normal to inspection and capillary refill normal Course Orders Ordered: Discontinued Medications Aspirin (Aspirin 81 Mg Chew Tab) 324 mg PO NOW ONE Stop: 11/24/23 12:20 Last Admin: 11/24/23 13:08 Dose: Not Given Documented By: QUEENIE Acetaminophen (Ofirmev) 1,000 mg in 100 mls @ 400 mls/hr IV NOW ONE Stop: 11/24/23 18:52 Last Admin: 11/24/23 19:11 Dose: 400 mls/hr Documented By: FARHAN Ketorolac Tromethamine (Ketorolac 30 Mg/Ml Vial) 30 mg IV NOW ONE Stop: 11/24/23 18:39 Last Admin: 11/24/23 19:12 Dose: 30 mg Documented By: FARHAN Vital Signs Vital signs: Vital Signs - 8 hr 11/24/23 16:30 11/24/23 16:30 11/24/23 16:45 Temperature Pulse Rate 79 82 Respiratory Rate 14 15 Blood Pressure 145/82 H Pulse Oximetry 95 96 Oxygen Delivery Method 11/24/23 17:00 11/24/23 17:00 11/24/23 17:20 Temperature Pulse Rate 81 100 H Respiratory Rate 15 Blood Pressure 151/79 H Pulse Oximetry 93 Oxygen Delivery Method 11/24/23 17:21 11/24/23 17:21 11/24/23 17:30 Temperature Pulse Rate 97 H 88 Respiratory Rate 14 Blood Pressure 174/94 H Pulse Oximetry 95 96 Oxygen Delivery Method 11/24/23 17:30 11/24/23 17:45 11/24/23 18:00 Temperature Pulse Rate 82 82 Respiratory Rate 16 16 Blood Pressure 173/88 H Pulse Oximetry 97 96 Oxygen Delivery Method 11/24/23 18:00 11/24/23 18:15 11/24/23 18:30 Temperature Pulse Rate 81 88 Respiratory Rate 19 17 Blood Pressure 158/87 H Pulse Oximetry 97 97 Oxygen Delivery Method Room Air 11/24/23 18:30 11/24/23 18:45 11/24/23 19:04 Temperature Pulse Rate 84 93 H Respiratory Rate 17 18 Blood Pressure 167/94 H Pulse Oximetry 97 97 Oxygen Delivery Method Room Air Room Air 11/24/23 19:15 11/24/23 19:30 11/24/23 19:45 Temperature Pulse Rate 87 96 H 96 H Respiratory Rate 15 15 17 Blood Pressure Pulse Oximetry 97 97 96 Oxygen Delivery Method Room Air Room Air Room Air 11/24/23 19:53 11/24/23 19:53 11/24/23 20:00 Temperature Pulse Rate 91 H Respiratory Rate 17 Blood Pressure 137/82 138/79 Pulse Oximetry 96 Oxygen Delivery Method Room Air 11/24/23 20:00 Temperature 98.8 F Pulse Rate 91 H Respiratory Rate 16 Blood Pressure Pulse Oximetry 95 Oxygen Delivery Method Room Air Medical Decision Making Lab Data Lab results reviewed: Yes I reviewed the patient's lab results. 11/24/23 13:02 11/24/23 13:02 Labs: Lab Results 11/24/23 Range/Units 13:02 WBC 4.4 L (4.5-11.0) X10^3/uL RBC 5.60 (4.5-5.9) X10^6/uL Hgb 17.0 (13.5-17.5) g/dL Hct 49.9 (41-53) % MCV 89.1 (80-100) fL MCH 30.3 (26-34) PG MCHC 34.0 (30-36) % RDW 13.3 (11.6-14.8) % Plt Count 202 (150-400) X10^3/uL Neut % (Auto) 67.0 (50-75) % Lymph % (Auto) 21.0 L (25-40) % [place] % (Auto) 9.5 (3-14) % Eos % (Auto) 0.8 L (2-4) % Baso % (Auto) 1.7 (0-2) % Neut # (Auto) 2900 (8845-8551) /uL Lymph # (Auto) 900 L (8904-7268) /uL [place] # (Auto) 400 (0-900) /uL Eos # (Auto) 0 (0-450) /uL Baso # (Auto) 100 (0-100) /uL PT 12.4 (9.4-12.5) SECONDS INR 1.1 (0.9-1.3) APTT 33 (25.1-36.5) SECONDS Sodium 139 (137-145) mmol/L Potassium 3.9 (3.4-5.1) mmol/L Chloride 104 (98-107) mmol/L Carbon Dioxide 28 (22-32) mmol/L BUN 19 (9-20) mg/dL Creatinine 1.13 (0.66-1.25) mg/dL Estimated GFR > 60 (>60) mL/min BUN/Creatinine Ratio 16.8 (6-22) Glucose 87 (70-100) mg/dL Calcium 9.4 (8.4-10.2) mg/dL Magnesium 1.7 (1.6-2.3) mg/dL Total Bilirubin 0.8 (0.2-1.3) mg/dL AST 51 (17-59) IU/L ALT 41 (<50) IU/L Alkaline Phosphatase 77 (38-126) U/L Total Creatine Kinase 944 H (55-170) U/L Troponin I < 0.012 (0.01-0.034) ng/mL Total Protein 7.9 (6.3-8.2) g/dL Albumin 4.3 (3.5-5.0) g/dL Globulin 3.6 (1.7-4.1) g/dL Albumin/Globulin Ratio 1.2 (1.0-2.8) Lipase 165 (23-300) U/L Urine Dip Bedside Urine Glucose Negative Bedside Urine Bilirubin - Negative Bedside Urine Ketone - Negative Urine Specific [place] 1.020 Bedside Urine Occult Blood - Negative Bedside Urine pH 6.0 Bedside Urine Protein - Negative Bedside Urine Urobilinogen - Negative Bedside Urine Nitrite - Negative Bedside Urine Leukocytes - Negative Esterase Point of care testing: Urine Dip Bedside Urine Glucose Negative Bedside Urine Bilirubin - Negative Bedside Urine Ketone - Negative Urine Specific [place] 1.020 Bedside Urine Occult Blood - Negative Bedside Urine pH 6.0 Bedside Urine Protein - Negative Bedside Urine Urobilinogen - Negative Bedside Urine Nitrite - Negative Bedside Urine Leukocytes - Negative Esterase Imaging Data Chest x-ray: Radiologist's Impression: PROCEDURE: XR CHEST 1V INDICATIONS: chest pain TECHNIQUE: One view of the chest was acquired. COMPARISON: [facility], CR, XR CHEST 2V, 03/24/2020, 10:23. FINDINGS: Surgical changes and devices: None. Lungs and pleura: Lungs are clear. No pleural effusions or pneumothorax. Mediastinum: Mediastinal contours appear normal. Heart size is normal. Bones and chest wall: No suspicious bony lesions. Overlying soft tissues appear unremarkable. IMPRESSION: No acute cardiopulmonary abnormality is seen. CT scan - head: Radiologist's Impression: PROCEDURE: CT HEAD/BRAIN WO CON INDICATIONS: slurred speech this am, resolved symptoms. TECHNIQUE: Noncontrast 4.5 mm thick angled axial sections acquired from the foramen magnum to the vertex, with coronal and sagittal reformats. For radiation dose reduction, the following was used: automated exposure control, adjustment of mA and/or kV according to patient size. COMPARISON: None. FINDINGS: Image quality: Diagnostic. CSF spaces: Basal cisterns are patent. No extra-axial fluid collections. Ventricles are normal in size and shape. Brain: No midline shift. No intracranial masses or hemorrhage. Burris-white matter interface is normal. Skull and face: Calvarium and visualized facial bones are intact, without suspicious lesions. Sinuses: Visualized sinuses and mastoids are clear. IMPRESSION: No acute intracranial pathology. CTA - brain/neck: Radiologist's Impression: PROCEDURE: CT ANGIO HEAD AND NECK INDICATIONS: speech difficulty, now resolved. TECHNIQUE: After the administration of intravenous contrast, 1 mm thick sections acquired from the aortic arch through the [place] of [place]. 3-dimensional xqefltp-ybjxbhqnd-yrsvunaiio (MIP) and/or volume rendering reformats were acquired of the central intracranial vasculature and neck separately. For radiation dose reduction, the following was used: automated exposure control, adjustment of mA and/or kV according to patient size. COMPARISON: [facility], CT, CT HEAD/BRAIN WO CON, 11/24/2023, 14:20. FINDINGS: Image quality: There is artifact associated with the metallic hardware. Artifact from the metallic hardware is reduced by metal reconstruction algorithm. BRAIN: CSF spaces: Ventricles are normal in size and shape. Basal cisterns are patent. No extra-axial fluid collections. Brain: No significant abnormality of the brain can be seen. Skull and face: Calvarium and facial bones appear intact, without suspicious lesions. Orbits appear normal. Sinuses: Sinuses and mastoids are clear. HEAD CT ANGIOGRAPHY: Anterior circulation: Intracranial internal carotid arteries are normal in size and flow. The flow within the paired anterior cerebral arteries is normal and symmetric. The flow within the middle cerebral arteries is normal and symmetric. The anterior communicating artery is seen. No aneurysms are seen. Posterior circulation: Visualized portions of the vertebral arteries demonstrate normal caliber, and join to form a normal appearing basilar artery. Flow within the posterior cerebral arteries is normal and symmetric. No aneurysms are seen. NECK CT ANGIOGRAPHY: Carotid system: Incidental note is made of a common origin of the right brachiocephalic artery and the left common carotid artery (bovine type arch). This is considered to be a developmental variant of no clinical consequence. The origins of the common carotid arteries appear patent. The common carotid arteries demonstrate normal caliber and courses. The bifurcation regions are both widely patent. The internal carotid arteries demonstrate normal calibers and courses. Posterior circulation: The origins of the vertebral arteries both appear widely patent. The more superior extracranial portions of both vertebral arteries also demonstrate normal courses and calibers. They join to form a normal appearing basilar artery. Soft tissues: Visualized neck soft tissues demonstrate no suspicious abnormalities. The thyroid is prominent in size. Bones: No suspicious bony lesions. Visualized cervical spine appears normally aligned. Dujt-ev-[id number] cervical spine degenerative changes are seen. IMPRESSION: No significant intracranial arterial abnormality is seen. No significant abnormality is seen within the arteries of the neck. If there is strong clinical suspicion for an acute stroke, please consider a brain MRI for further evaluation, as it is more sensitive (assuming that there is no contraindication to MRI). Additional findings: Atou-lk-gpeywoju cervical spine degenerative change Enlarged thyroid Bovine type aortic branching pattern. Any quantitative measurements of stenosis were performed using NASCET criteria. ECG Data Attestation: I personally reviewed and interpreted this ECG as follows: Interpretation: Sinus rhythm Ventricular rate 82 Left axis deviation LVH No ST T wave changes MDM Narrative Medical decision making narrative: Workup here in the emergency department today is very reassuring. He actually reports a tremendous improvement of symptoms after IV Tylenol and Toradol here in the ER. I have low suspicion for CVA/TIA. I do recommend that he keep his follow-up appointment with Neurology. There was no indication for admission to the hospital today. He has had an extensive workup up to this point for the symptoms. Will discharge patient home with return precautions. He expressed understanding and agreement. Discharge Plan Departure Patient Disposition: Home Clinical Impression: Headache Instructions: DI for Headache Activity Restrictions/Additional Instructions: You can take 2 regular strength or 1 extra-strength Tylenol every 4 hours. You can take 600 mg of ibuprofen/Motrin every 8 hours as needed for discomfort. Keep all of your scheduled medical appointments. Return to the emergency department for new symptoms. Prescriptions: No Action cyclobenzaprine 5 mg tablet 5 mg PO TID PRN (Reason: muscle spasm) Qty: 20 0RF albuterol sulfate 90 mcg/actuation HFA aerosol inhaler 1 inh INHALATION Q4-6H PRN (Reason: shortness of breath) Qty: 18 0RF lidocaine 5 % adhesive patch,medicated 1 patch TOP DAILY Qty: 15 0RF Rx Instructions: leave on most painful area for up to 12 hrs meloxicam 7.5 mg tablet 7.5 mg PO BID Qty: 10 0RF cyclobenzaprine 10 mg tablet 10 mg PO TID PRN (Reason: muscle spasm) Qty: 14 0RF cyclobenzaprine 10 mg tablet 10 mg PO BEDTIME PRN (Reason: muscle spasm) Qty: 10 0RF tramadol [Ultram] 50 mg tablet 50 mg PO Q8H PRN (Reason: pain) Qty: 10 0RF Referrals: Jan Ron MD [Primary Care Provider] - Stand Alone Forms: Patient Portal/API, Work Release Note
[2023-11-24] MEDS: ACETAMINOPHEN IV 1,000 MG/100 ML VIAL 400 MG IV (19:11)
[2023-11-24] MEDS: KETOROLAC 30 MG/ML VIAL IV (19:12)
== END 2023-11-24 20:15 | disposition home or self-care (01) ==
PROVIDERS: Emergency Medicine; Emergency Provider Emergency Medicine; PCP Internal Medicine
DX: R51.9 Headache, unspecified (principal); R07.9 Chest pain, unspecified
CPT/HCPCS: 36415; 70450; 70496; 70498; 71045; 80053; 81003; 82550; 83690; 83735; 84484; 85025; 85610; 85730; 93005; 96365; 96375; 99284; J0136; J1885; Q9967